=== PATIENT | female | born 1945 | race African-American/Black ===

== ENCOUNTER 2022-08-09 06:40 | Day surgery (SDC) | payer BC ==
[2022-08-08 11:55] VITALS: BMI 37.1
[2022-08-09 09:31] VITALS: TEMP 98.4
[2022-08-09 09:33] VITALS: BP 128/76; PULSE 88; RESP 19
== END 2022-08-09 10:40 | disposition home or self-care (01) ==
LOC: FASU-ENDO 06:40
PROVIDERS: ATTEND Internal Medicine Gastroenterology
PROC: 0DBL8ZX Excision of Transverse Colon, Via Natural or Artificial Opening Endoscopic, Diagnostic (ICD-10-PCS; principal; 2022-08-09 08:49)
DX: Z12.11 Encounter for screening for malignant neoplasm of colon (principal); K57.30 Diverticulosis of large intestine without perforation or abscess without bleeding; K63.5 Polyp of colon
CPT/HCPCS: 82962; 88305-TC